=== PATIENT | male | born 1995 ===

== ENCOUNTER 2018-10-08 14:33 | Emergency (ER) | payer SELFPAY ==
--- NOTE | 2018-10-08 14:39 | UC ---
Upper Extremity HPI - HPI Summary HPI Summary: Patient is a 23 year old male , who present today to the urgent care with right index finger injury from last night. He was handling a glass container, which she took out of the hot casing tester and post-eyes on it which broke and sliced the skin of distal phalanx of his finger. His friend who is an EMT cleaned it and wrapped it. Denies any bleeding. His last tetanus shot was within 3 years, does not remember the exact date - History of Current Complaint Stated Complaint: FINGER LACERATION Time Seen by Provider: 10/08/18 14:35 Hx Obtained From: Patient - Allergies/Home Medications Allergies/Adverse Reactions: Allergies Allergy/AdvReac Type Severity Reaction Status Date / Time No Known Allergies Allergy Verified 10/08/18 15:01 Home Medications: Home Medications Dextroamphetamine ER (NF) 30 mg PO DAILY 10/08/18 [History Confirmed 10/08/18] Dextroamphetamine/Amphetamine [Adderall 30 mg-] 0.5 tab PO BEDTIME PRN MDD 1 [History Confirmed 10/08/18] PMH/Surg Hx/FS Hx/Imm Hx - Additional Past Medical History Additional PMH: ADHD on Adderall Previously Healthy: Yes - Surgical History Surgical History: None - Social History Substance Use Type: None - Immunization History Vaccination Up to Date: Yes Review of Systems All Other Systems Reviewed And Are Negative: Yes Constitutional: Positive: Negative Skin: Positive: Other - Laceration of the right index finger Eyes: Positive: Negative ENT: Positive: Negative Respiratory: Positive: Negative Cardiovascular: Positive: Negative Gastrointestinal: Positive: Negative Genitourinary: Positive: Negative Motor: Positive: Negative Neurovascular: Positive: Negative Musculoskeletal: Positive: Negative Neurological: Positive: Negative Psychological: Positive: Negative Is Patient Immunocompromised?: No Physical Exam - Summary Physical Exam Summary: Physical Exam: Const: Appears well. No signs of apparent distress present. Alert and oriented x 3. Musculo: Walks with a normal gait. Head/Face: Atraumatic, normocephalic on inspection. Eyes: EOMI and PERRLA in both eyes. Conjunctivae clear. No discharge noted ENT: Hearing normal Respiratory: Respirations are unlabored. Lungs clear to auscultation bilaterally CVS: Regular rate and Rhythm, S1S2 normal , no murmurs identified. Extremities: Peripheral circulation is grossly normal. Pulses 2+ Abdomen : Soft non tender , nondistended , Bowel sounds present . No guarding , rebound tenderness or rigidity noted. Skin: Right index finger: Approximately 2 cm linear superficial laceration - slicing wound noted on the volar aspect of the distal phalanx of the index finger on the right. Neuro: Cranial nerves II to XII intact, motor and sensory intact. DTR Intact bilaterally. Mood is normal. Affect is normal. Triage Information Reviewed: Yes Vital Signs Reviewed: Yes Procedures - Laceration/Wound Repair 1 Location: upper extremity - right index finger Description: Linear Length, Depth and Shape: 2 cm , 1mm, linear, slcing Betadine Prep?: No Irrigated w/ Saline (ccs): 30 Laceration/Wound Explored: clean, no foreign body removed Closure: Skin Adhesive, SteriStrips Debridement: none Upper Extremity Course/Dx - Course Course Of Treatment: During the visit today, we discussed the findings and further plan. Laceration closed with Dermabond and Steri-Strips. I will prescribe the Keflex to the pharmacy . He is currently taking amoxicillin. Advised him for monitoring for any redness or signs of infection and he can fill the prescription of Keflex.. Patient expressed understanding . - Differential Dx/Diagnosis Provider Diagnosis: Laceration of right index finger Discharge - Sign-Out/Discharge Documenting (check all that apply): Patient Departure All imaging exams completed and their final reports reviewed: No Studies - Discharge Plan Condition: Stable Disposition: HOME Prescriptions: Cephalexin CAP* [Keflex CAP*] 500 mg PO TID 7 Days #21 cap Patient Education Materials: Laceration (ED) Referrals: Rush Healy MD [Primary Care Provider] - Additional Instructions: Complete taking amoxicillin. Advised him for monitoring for any redness or signs of infection and he can fill the prescription of Keflex.It has been prescribed to the pharmacy. care discussed - do not wet the area Follow up with [facility] or here in 1 week for recheck. Return to Urgent care / ER if symptoms get worse. - Billing Disposition and Condition Condition: STABLE Disposition: Home
[2018-10-08 15:00] VITALS: BP 112/58
== END 2018-10-08 15:30 | disposition home or self-care (01) ==
LOC: UCEAST 14:33
DX: S61.210A Laceration without foreign body of right index finger without damage to nail, initial encounter (principal); W25.XXXA Contact with sharp glass, initial encounter; Y92.000 Kitchen of unspecified non-institutional (private) residence as the place of occurrence of the external cause; F90.9 Attention-deficit hyperactivity disorder, unspecified type
CPT/HCPCS: 12001; 99201; G0463